=== PATIENT | male | born 1945 | race Caucasian/White ===

== ENCOUNTER 2016-10-22 17:30 | Emergency (ER) | payer MEDICARE, OTHER ==
[2016-10-22 17:35] VITALS: BP 143/86
[2016-10-22] MEDS ORDERED: Albuterol 2.5 MG/3 ML NEB.SOL* (0.083%) INH ONE (18:06)
[2016-10-22] MEDS ORDERED: Albuterol 2.5 MG/3 ML NEB.SOL* (0.083%) ONE (18:07)
--- NOTE | 2016-10-22 18:12 | UC ---
Respiratory Complaint HPI - HPI Summary HPI Summary: Nasal congestion and ST started about a week ago, in the last couple days increasing non-productive cough with wheezing. Also having painful respirations , cannot lay down on back. Denies fever. - History of Current Complaint Chief Complaint: UCRespiratory Stated Complaint: CONGESTION Time Seen by Provider: 10/22/16 17:43 Hx Obtained From: Patient Onset/Duration: Gradual Onset, Lasting Days Timing: Constant Severity Initially: Mild Severity Currently: Moderate Character: Cough: Nonproductive Aggravating Factors: Exertion, Deep Breaths, Recumbent Position Alleviating Factors: Upright Position Associated Signs And Symptoms: Positive: Wheezing, URI, Nasal Congestion. Negative: Fever, Chills, Calf Pain, Calf Swelling - Allergies/Home Medications Allergies/Adverse Reactions: Allergies Allergy/AdvReac Type Severity Reaction Status Date / Time Penicillins Allergy Intermediate Hives Verified 10/22/16 17:34 Home Medications: Home Medications Oxymetazoline HCl [Afrin Nasal [place]] 0.05 % NA PRN 10/22/16 [History] PMH/Surg Hx/FS Hx/Imm Hx Cardiovascular History Of: Reports: Hypertension - ON MED Respiratory History Of: Reports: Asthma - CHILDHOOD AND EARLY ADULT-NOT CURRENTLY - Surgical History Surgical History: Yes Surgery Procedure, Year, and Place: COLONOSCOPY--2013, HERNIA REPAIR 04/2016 - Family History Known Family History: Positive: Respiratory Disease - asthma - Social History Occupation: Retired Alcohol Use: Occasionally Alcohol Amount: 5-6 BEERS A WEEK Substance Use Type: None Smoking Status (MU): Never Smoked Tobacco Review of Systems Constitutional: Negative Skin: Negative Eyes: Negative ENT: Sore Throat, Nasal Discharge Respiratory: Cough Cardiovascular: Negative Gastrointestinal: Negative Genitourinary: Negative Motor: Negative Neurovascular: Negative Musculoskeletal: Negative Neurological: Negative Psychological: Negative All Other Systems Reviewed And Are Negative: Yes Physical Exam Triage Information Reviewed: Yes Vital Signs: Initial Vital Signs Temp 96.5 F 10/22/16 17:31 Pulse 74 10/22/16 17:31 Resp 16 10/22/16 17:31 BP 143/86 10/22/16 17:31 Pulse Ox 99 10/22/16 17:31 UC Diagnostic Evaluation - Laboratory O2 Sat by Pulse Oximetry: 99 Re-Evaluation - Re-Evaluation First Eval Re-Evaluation Time: 18:20 Change: Improved - increased air movement bilat after neb treatment Respiratory Course/Dx - Differential Dx/Diagnosis Provider Diagnoses: URI, likely viral. bronchospasm Discharge - Discharge Plan Condition: Stable Disposition: HOME Prescriptions: Albuterol HFA INHALER* [Ventolin HFA Inhaler*] 1 - 2 puff INH Q4H PRN #1 mdi PRN Reason: wheeze, cough Benzonatate CAP* [Tessalon CAP*] 100 mg PO TID PRN #30 cap PRN Reason: Cough Guaifenesin-Codeine [Guaiatussin AC] 5 - 10 ml PO Q6H #120 ml MDD 40mL Patient Education Materials: Upper Respiratory Infection (ED), Bronchospasm (ED ) Referrals: Vidal Conde MD [Primary Care Provider] - If Needed Additional Instructions: Call or return if you develop increasing fever, shortness of breath, chest pain , bloody sputum, or otherwise worsen. If you have not improved at all after several days, contact your primary care physician or return here.
== END 2016-10-22 18:30 | disposition home or self-care (01) ==
LOC: UCEAST 17:30
DX: J06.9 Acute upper respiratory infection, unspecified (principal); J98.01 Acute bronchospasm; Z88.0 Allergy status to penicillin
CPT/HCPCS: 99212; G0463

== ENCOUNTER 2018-02-01 17:37 | Observation (INO) | payer MEDICARE, OTHER ==
[2018-02-01] MEDS ORDERED: Al Hydrox/Mg Hydrox/Simet LIQ* 30 ML UDC PO ONE (21:07)
--- NOTE | 2018-02-01 21:16 | ED ---
Abdominal Pain/Male - HPI Summary HPI Summary: Complains of epigastric burning, has burning in sternum, burning in throat starting today. States epigastric discomfort over the past few days with decreased eating, but burning started today. Patient took antacid at 1400 with no relief. No history of epigastric or sternal burning, Occasional history of epigastric discomfort usually resolve with Maalox. Admits to increasing stress in the past 2 weeks. Denies cardiac history. Denies fever, cough, sore throat, SOB, N/V/D, change in urine. Medical history is HTN, HDL, prostate CA.. Abdominal/pelvic surgical history is hernia repair. - History of Current Complaint Hx Obtained From: Patient Onset/Duration: Gradual Onset Timing: Intermittent Severity Initially: Moderate Severity Currently: Moderate Pain Intensity: 4 Pain Scale Used: 0-10 Numeric Location: Epigastric Radiates: Yes Radiates to: Chest Character: Burning Aggravating Factor(s): Nothing Alleviating Factor(s): Nothing Associated Signs And Symptoms: Positive: Decreased Appetite - Risk Factors Testicular Torsion: Negative Cardiac Risk Factors: Hypertension <Rigo Kumari - Last Filed: 02/02/18 03:19> <Sudhir Newton - Last Filed: 02/02/18 04:07> - History of Current Complaint Chief Complaint: EDGeneral Stated Complaint: ABD PAIN Time Seen by Provider: 02/01/18 20:33 - Allergies/Home Medications Allergies/Adverse Reactions: Allergies Allergy/AdvReac Type Severity Reaction Status Date / Time Penicillins Allergy Hives Verified 02/02/18 02:34 Home Medications: Home Medications Enalapril TAB* [Vasotec TAB*] 5 mg PO QAM 02/01/18 [History Confirmed 02/01/18] Multivitamins/Minerals TAB* [Theragran/minerals TAB*] 1 tab PO DAILY 02/01/18 [ History Confirmed 02/01/18] Pravastatin (NF) [Pravachol (NF)] 20 mg PO QPM 02/01/18 [History Confirmed 02/01] PMH/Surg Hx/FS Hx/Imm Hx Cardiovascular History: Reports: Hx Hypertension - ON MED Respiratory History: Reports: Hx Asthma - CHILDHOOD AND EARLY ADULT-NOT CURRENTLY Sensory History: Reports: Hx Contacts or Glasses - GLASSES Denies: Hx Hearing Aid Opthamlomology History: Reports: Hx Contacts or Glasses - GLASSES - Surgical History Surgery Procedure, Year, and Place: COLONOSCOPY--2013, HERNIA REPAIR 04/2016 Hx Anesthesia Reactions: No - Immunization History Date of Tetanus Vaccine: utd Date of Influenza Vaccine: utd Infectious Disease History: No Infectious Disease History: Denies: Traveled Outside the [place] in Last 30 Days - Family History Known Family History: Positive: Respiratory Disease - asthma - Social History Alcohol Use: Daily Alcohol Amount: beer daily Substance Use Type: Reports: None Smoking Status (MU): Former Smoker <Rigo Kumari - Last Filed: 02/02/18 03:19> Review of Systems Constitutional: Negative Eyes: Negative ENT: Negative Cardiovascular: Negative Respiratory: Negative Positive: Abdominal Pain Genitourinary: Negative Musculoskeletal: Negative Skin: Negative Neurological: Negative Psychological: Normal All Other Systems Reviewed And Are Negative: Yes <Rigo Kumari - Last Filed: 02/02/18 03:19> Physical Exam Triage Information Reviewed: Yes Vital Signs On Initial Exam: Initial Vitals Temp Pulse Resp BP Pulse Ox 96.9 F 68 16 141/84 98 02/01/18 17:52 02/01/18 17:52 02/01/18 17:52 02/01/18 17:52 02/01/18 17:52 Vital Signs Reviewed: Yes Appearance: Positive: Well-Appearing Skin: Positive: Warm Head/Face: Positive: Normal Head/Face Inspection Eyes: Positive: Normal Neck: Positive: Supple Respiratory/Lung Sounds: Positive: Clear to Auscultation Cardiovascular: Positive: Normal Abdomen Description: Positive: Other: - Epigastric tenderness to palpation. No tenderness in any other quadrant Musculoskeletal: Positive: Normal Neurological: Positive: Normal Psychiatric: Positive: Normal AVPU Assessment: Alert - [place] Coma Scale Best Eye Response: 4 - Spontaneous Best Motor Response: 6 - Obeys Commands Best Verbal Response: 5 - Oriented Coma Scale Total: 15 <Rigo Kumari - Last Filed: 02/02/18 03:19> Vital Signs On Initial Exam: Initial Vitals Temp Pulse Resp BP Pulse Ox 96.9 F 68 16 141/84 98 02/01/18 17:52 02/01/18 17:52 02/01/18 17:52 02/01/18 17:52 02/01/18 17:52 <Sudhir Newton - Last Filed: 02/02/18 04:07> Diagnostics - Vital Signs Vital Signs Temp Pulse Resp BP Pulse Ox 02/01/18 19:55 98.0 F 81 18 141/81 98 02/01/18 17:52 96.9 F 68 16 141/84 98 - Laboratory Result Diagrams: 02/01/18 21:17 02/01/18 21:17 Lab Statement: Any lab studies that have been ordered have been reviewed, and results considered in the medical decision making process. - Radiology cxr Xray Interpretation: No Acute Changes Radiology Interpretation Completed By: Radiologist - CT ab/pel CT Interpretation: Positive (See Comments) - duodenal volvulus CT Interpretation Completed By: Radiologist - EKG 1 Cardiac Rate: NL EKG Rhythm: Sinus Rhythm ST Segment: Normal Ectopy: None <Rigo Kumari - Last Filed: 02/02/18 03:19> - Vital Signs Vital Signs Temp Pulse Resp BP Pulse Ox 02/02/18 00:00 84 15 96 02/01/18 23:32 93 14 160/103 96 02/01/18 23:04 77 15 95 02/01/18 22:36 66 21 94 02/01/18 22:32 63 12 131/80 95 02/01/18 22:09 70 8 96 02/01/18 21:32 70 13 143/86 94 02/01/18 21:02 66 12 127/110 95 02/01/18 21:00 67 17 94 02/01/18 20:32 71 16 127/79 95 02/01/18 20:26 74 20 95 02/01/18 19:55 98.0 F 81 18 141/81 98 02/01/18 17:52 96.9 F 68 16 141/84 98 - Laboratory Lab Results: Lab Results 02/01/18 02/01/18 02/01/18 Range/Units 21:17 21:17 21:43 WBC 10.0 (3.5-10.8) 10^3/ul RBC 4.88 (4.0-5.4) 10^6/ul Hgb 15.5 (14.0-18.0) g/dl Hct 44 (42-52) % MCV 90 (80-94) fL MCH 32 H (27-31) pg MCHC 35 (31-36) g/dl RDW 14 (10.5-15) % Plt Count 279 (150-450) 10^3/ul MPV 7.0 L (7.4-10.4) um3 Neut % (Auto) 74.9 (38-83) % Lymph % (Auto) 15.8 L (25-47) % [place] % (Auto) 8.3 H (0-7) % Eos % (Auto) 0.6 (0-6) % Baso % (Auto) 0.4 (0-2) % Absolute Neuts (auto) 7.5 (1.5-7.7) 10^3/ul Absolute Lymphs (auto) 1.6 (1.0-4.8) 10^3/ul Absolute Monos (auto) 0.8 (0-0.8) 10^3/ul Absolute Eos (auto) 0.1 (0-0.6) 10^3/ul Absolute Basos (auto) 0 (0-0.2) 10^3/ul Absolute Nucleated RBC 0 10^3/ul Nucleated RBC % 0 Sodium 139 (139-145) mmol/L Potassium 4.4 (3.5-5.0) mmol/L Chloride 101 (101-111) mmol/L Carbon Dioxide 30 (22-32) mmol/L Anion Gap 8 (2-11) mmol/L BUN 17 (6-24) mg/dL Creatinine 1.13 (0.67-1.17) mg/dL Est GFR ( Amer) 81.8 (>60) Est GFR (Non-Af Amer) 63.6 (>60) BUN/Creatinine Ratio 15.0 (8-20) Glucose 115 H (70-100) mg/dL Lactic Acid (0.5-2.0) mmol/L Calcium 9.6 (8.6-10.3) mg/dL Total Bilirubin 0.60 (0.2-1.0) mg/dL AST 21 (13-39) U/L ALT 18 (7-52) U/L Alkaline Phosphatase 66 (34-104) U/L Troponin I 0.01 (<0.04) ng/mL Total Protein 6.8 (6.4-8.9) g/dL Albumin 4.1 (3.2-5.2) g/dL Globulin 2.7 (2-4) g/dL Albumin/Globulin Ratio 1.5 (1-3) Lipase 27 (11.0-82.0) U/L Urine Color Yellow Urine Appearance Clear Urine pH 7.0 (5-9) Ur Specific [place] 1.009 L (1.010-1.030) Urine Protein Negative (Negative) Urine Ketones Negative (Negative) Urine Blood Negative (Negative) Urine Nitrate Negative (Negative) Urine Bilirubin Negative (Negative) Urine Urobilinogen Negative (Negative) Ur Leukocyte Esterase Negative (Negative) Urine Glucose Negative (Negative) 02/01/18 Range/Units 23:25 WBC (3.5-10.8) 10^3/ul RBC (4.0-5.4) 10^6/ul Hgb (14.0-18.0) g/dl Hct (42-52) % MCV (80-94) fL MCH (27-31) pg MCHC (31-36) g/dl RDW (10.5-15) % Plt Count (150-450) 10^3/ul MPV (7.4-10.4) um3 Neut % (Auto) (38-83) % Lymph % (Auto) (25-47) % [place] % (Auto) (0-7) % Eos % (Auto) (0-6) % Baso % (Auto) (0-2) % Absolute Neuts (auto) (1.5-7.7) 10^3/ul Absolute Lymphs (auto) (1.0-4.8) 10^3/ul Absolute Monos (auto) (0-0.8) 10^3/ul Absolute Eos (auto) (0-0.6) 10^3/ul Absolute Basos (auto) (0-0.2) 10^3/ul Absolute Nucleated RBC 10^3/ul Nucleated RBC % Sodium (139-145) mmol/L Potassium (3.5-5.0) mmol/L Chloride (101-111) mmol/L Carbon Dioxide (22-32) mmol/L Anion Gap (2-11) mmol/L BUN (6-24) mg/dL Creatinine (0.67-1.17) mg/dL Est GFR ( Amer) (>60) Est GFR (Non-Af Amer) (>60) BUN/Creatinine Ratio (8-20) Glucose (70-100) mg/dL Lactic Acid 1.4 (0.5-2.0) mmol/L Calcium (8.6-10.3) mg/dL Total Bilirubin (0.2-1.0) mg/dL AST (13-39) U/L ALT (7-52) U/L Alkaline Phosphatase (34-104) U/L Troponin I (<0.04) ng/mL Total Protein (6.4-8.9) g/dL Albumin (3.2-5.2) g/dL Globulin (2-4) g/dL Albumin/Globulin Ratio (1-3) Lipase (11.0-82.0) U/L Urine Color Urine Appearance Urine pH (5-9) Ur Specific [place] (1.010-1.030) Urine Protein (Negative) Urine Ketones (Negative) Urine Blood (Negative) Urine Nitrate (Negative) Urine Bilirubin (Negative) Urine Urobilinogen (Negative) Ur Leukocyte Esterase (Negative) Urine Glucose (Negative) Result Diagrams: 02/01/18 21:17 02/01/18 21:17 Lab Statement: Any lab studies that have been ordered have been reviewed, and results considered in the medical decision making process. <Sudhir Newton - Last Filed: 02/02/18 04:07> Re-Evaluation - Re-Evaluation 1 Re-Evaluation Time: 23:03 Change: Improved Comment: pt pain free after gi cocktail <Rigo Kumari - Last Filed: 02/02/18 03:19> Abdominal Pain Fem Course/Dx - Provider Notifications Discussed Care Of Patient With: Darion (surgery) Instructed by Provider To: Admit As Inpatient <Rigo Kumari - Last Filed: 02/02/18 03:19> - Course Course Of Treatment: I supervised the care of the physician bioinformatics assistant and I performed a history and physical on this patient. History: Epigastric, right upper quadrant pain with associated reflux type symptoms. Physical exam: Epigastric distention without tenderness to palpation at this juncture. Plan: CT scan was performed and I spoke to the radiologist who is concerned for an entity called duodenal volvulus. I placed an NG tube which drained over 500 cc of goode brown fluids. I consulted the general surgeon who was not familiar with this diagnosis either. She agreed to come and evaluate the patient at the bedside. She agrees the CT scan does not appear normal and we've agreed that the patient should be observed for possible gastric outlet obstruction. Following GI cocktail and NG tube he compression the patient has no pain. <Sudhir Newton - Last Filed: 02/02/18 04:07> - Diagnoses Provider Diagnoses: Gastric outlet obstruction Discharge - Sign-Out/Discharge Documenting (check all that apply): Discharge/Admit/Transfer - Billing Disposition and Condition Condition: STABLE [place] [facility] [place]Rigo Kumari - Last Filed: 02/02/18 03:19> - Billing Disposition and Condition Condition: STABLE [place] [facility] [place] <Sudhir Newton - Last Filed: 02/02/18 04:07> - Discharge Plan Condition: Stable Disposition: ADMITTED TO [facility]
[2018-02-01 21:37] LABS: ABS Basophils 0 10^3/ul (0-0.2); ABS Eosinophils 0.1 10^3/ul (0-0.6); ABS Lymphocytes 1.6 10^3/ul (1.0-4.8); ABS Monocytes 0.8 10^3/ul (0-0.8); ABS Neutrophils 7.5 10^3/ul (1.5-7.7); ABS Nucleated RBC 0 10^3/ul; Eosinophil % 0.6 % (0-6); Hematocrit 44 % (42-52); Hemoglobin 15.5 g/dl (14.0-18.0); Lymphocyte % 15.8 % (25-47); Mean Corpuscular HGB Conc 35 g/dl (31-36); Mean Corpuscular Hemoglobin 32 pg (27-31); Mean Corpuscular Volume 90 fL (80-94); Nucleated Red Blood Cells % 0; Platelet Count 279 10^3/ul (150-450); Red Blood Count 4.88 10^6/ul (4.0-5.4); Red Cell Distribution Width 14 % (10.5-15)
[2018-02-01 21:48] LABS: EGFR Non-African American 63.6 (>60)
--- NOTE | 2018-02-01 21:50 | RAD ---
Indication: Epigastric pain. 2 views of the chest including dual energy PA views demonstrates no mediastinal shift. Heart is of normal size and configuration. Lung zepeda appear clear. IMPRESSION: No active cardiopulmonary disease is noted.
[2018-02-01] MEDS ORDERED: Iohexol 300* (CONTRAST) 10 ML SDV IV ONE (21:55)
[2018-02-01 21:57] LABS: Urine Appearance Clear; Urine Blood Negative (Negative); Urine Color Yellow; Urine Ketones Negative (Negative); Urine Protein Negative (Negative); Urine Specific Gravity 1.009 (1.010-1.030); Urine Urobilinogen Negative (Negative)
[2018-02-02] MEDS ORDERED: hydrALAZINE IV* 20 MG/ML VIAL IV PRN (00:02)
[2018-02-02] MEDS ORDERED: Ondansetron INJ* 2 MG/ML VIAL IV PRN (00:04)
[2018-02-02] MEDS ORDERED: Morphine VIAL* 4 MG/ML VIAL (1 ml vial) IV PRN (00:06)
[2018-02-02] MEDS ORDERED: NS 0.9% 1000 ML* 1,000 ML IV ONE (00:08)
--- NOTE | 2018-02-02 00:21 | HP ---
H&P (Free Text) History and Physical: Surgery Asked by Dr. Newton to evaluate a pt with reported "duodenal volvulus". Mr. Portillo is a 73 y.o. male who reports he came to the ER because he was having unrelenting "reflux". He began to have the sensation of fluid backing up into his esophagus ~2-3 days ago. Earlier today it seemed to become persistent. He also notes that he had no appetite in this time, though he denies nausea or vomiting. He denies fever, but had chills yesterday. He also says he has been belching a lot, but not passing flatus. He may have had a related episode in December when he had RUQ pain for a few days and almost went to the ER in [place] where he was at the time. PMHx: HTN, hypercholesterolemia, prostate CA. Meds: enalapril, pravastatin, MVI ALL: PCN SH: quit tob 40 years ago after <1ppd x 5-8 years; daily EtOH, neg IVDA FH: brother of heart problem PE; general: WDWN male in NAD Vital Signs 02/01/18 02/01/18 02/01/18 17:52 19:55 20:26 Temperature 96.9 F 98.0 F Pulse Rate 68 81 74 Respiratory 16 18 20 Rate Blood Pressure 141/84 141/81 (mmHg) O2 Sat by Pulse 98 98 95 Oximetry 02/01/18 02/01/18 02/01/18 20:32 21:00 21:02 Temperature Pulse Rate 71 67 66 Respiratory 16 17 12 Rate Blood Pressure 127/79 127/110 (mmHg) O2 Sat by Pulse 95 94 95 Oximetry 02/01/18 02/01/18 02/01/18 21:32 22:09 22:32 Temperature Pulse Rate 70 70 63 Respiratory 13 8 12 Rate Blood Pressure 143/86 131/80 (mmHg) O2 Sat by Pulse 94 96 95 Oximetry HEENT: anicteric sclerae, moist oral mucosa, neg. cervical adenopathy lungs: clear to ausc. heart: reg. abd: distended, diminished BS, non-tender except for slight tenderness in epigastrium ext: neg. cyanosis, edema Laboratory Results - last 24 hr 02/01/18 02/01/18 02/01/18 21:17 21:17 21:43 WBC 10.0 RBC 4.88 Hgb 15.5 Hct 44 MCV 90 MCH 32 H MCHC 35 RDW 14 Plt Count 279 MPV 7.0 L Neut % (Auto) 74.9 Lymph % (Auto) 15.8 L [place] % (Auto) 8.3 H Eos % (Auto) 0.6 Baso % (Auto) 0.4 Absolute Neuts (auto) 7.5 Absolute Lymphs (auto) 1.6 Absolute Monos (auto) 0.8 Absolute Eos (auto) 0.1 Absolute Basos (auto) 0 Absolute Nucleated RBC 0 Nucleated RBC % 0 Sodium 139 Potassium 4.4 Chloride 101 Carbon Dioxide 30 Anion Gap 8 BUN 17 Creatinine 1.13 Est GFR ( Amer) 81.8 Est GFR (Non-Af Amer) 63.6 BUN/Creatinine Ratio 15.0 Glucose 115 H Lactic Acid Calcium 9.6 Total Bilirubin 0.60 AST 21 ALT 18 Alkaline Phosphatase 66 Troponin I 0.01 Total Protein 6.8 Albumin 4.1 Globulin 2.7 Albumin/Globulin Ratio 1.5 Lipase 27 Urine Color Yellow Urine Appearance Clear Urine pH 7.0 Ur Specific [place] 1.009 L Urine Protein Negative Urine Ketones Negative Urine Blood Negative Urine Nitrate Negative Urine Bilirubin Negative Urine Urobilinogen Negative Ur Leukocyte Esterase Negative Urine Glucose Negative 02/01/18 23:25 WBC RBC Hgb Hct MCV MCH MCHC RDW Plt Count MPV Neut % (Auto) Lymph % (Auto) [place] % (Auto) Eos % (Auto) Baso % (Auto) Absolute Neuts (auto) Absolute Lymphs (auto) Absolute Monos (auto) Absolute Eos (auto) Absolute Basos (auto) Absolute Nucleated RBC Nucleated RBC % Sodium Potassium Chloride Carbon Dioxide Anion Gap BUN Creatinine Est GFR ( Amer) Est GFR (Non-Af Amer) BUN/Creatinine Ratio Glucose Lactic Acid 1.4 Calcium Total Bilirubin AST ALT Alkaline Phosphatase Troponin I Total Protein Albumin Globulin Albumin/Globulin Ratio Lipase Urine Color Urine Appearance Urine pH Ur Specific [place] Urine Protein Urine Ketones Urine Blood Urine Nitrate Urine Bilirubin Urine Urobilinogen Ur Leukocyte Esterase Urine Glucose CT scan read as duodenal volvulus, but seems like GOO with very distended stomach. A/P: GOO; will admit, hydrate, keep NPO, decompress stomach with NGT, check UGI in AM. CLFoster
[2018-02-02] MEDS: Pantoprazole IV* 40 MG IV SCH ×2 (02:53→08:53)
[2018-02-02] MEDS: D5W 1/2 NS KCl 20 Meq 1000 ML* 1,000 ML IV SCH ×3 (03:36→22:37)
--- NOTE | 2018-02-02 08:21 | RAD ---
INDICATION: Epigastric abdominal pain. COMPARISON: There are no prior studies available for comparison. TECHNIQUE: A CT scan of the abdomen and pelvis was performed with intravenous and oral contrast following intravenous injection of 108 ml of Omnipaque 300 nonionic contrast. Contiguous axial sections were obtained from the lung bases through the symphysis pubis. Images were reconstructed in the coronal and sagittal planes. FINDINGS: There is mild dependent bilateral lower lobe subsegmental atelectasis. No pleural effusion is present. The liver and spleen are normal in size. There is a small nodular area along the posterior aspect of the spleen suggestive of a small accessory spleen. There is a small 0.5 cm hypodense lesion in the lateral segment of the right hepatic lobe likely representing a small cyst although too small to characterize by CT. The gallbladder is distended with mild thickening of the painter. The pancreas appears to be within normal limits. The kidneys and adrenal glands are normal in size. No hydronephrosis is seen. No significant focal renal abnormality is seen. The prostate gland is moderately enlarged measuring 5.7 cm in transverse dimension. The aorta is normal in caliber and demonstrates homogeneous contrast opacification. No significant enlarged retroperitoneal lymph nodes are seen. The stomach is markedly distended with an air-fluid level. The antrum and duodenum appear redundant and twisted suspicious for a volvulus. In addition the first portion of the jejunum turns into the right upper quadrant rather left upper quadrant consistent with malrotation. The gallbladder is diffusely thickened although most thickened adjacent to the twisted portion of the duodenum and antrum and may be inflamed secondary to the gastric process although may be a primary process with adhesions which may have predisposed to the volvulus. The appendix is within normal limits. There are scattered diverticuli within the colon which are moderate in degree in the descending and sigmoid colon. There is no evidence for diverticulitis or colitis. No free intraperitoneal air or fluid is seen. No significant focal osseous abnormality is seen. The results of this examination were discussed with Robert Gimenez. IMPRESSION: GASTRIC OUTLET OBSTRUCTION WHICH APPEARS TO BE REDUNDANCY AND TWISTING OF THE ANTRUM AND DUODENUM SUSPICIOUS FOR A VOLVULUS. THERE IS A MALROTATION OF THE SMALL BOWEL NOTED. THERE IS ALSO DISTENTION OF THE GALLBLADDER AND THICKENING OF THE WALL WHICH IS MOST THICKENED AND ADJACENT TO THE DUODENUM AND ANTRUM AND MAY BE INFLAMED SECONDARY TO THE GASTRIC PROCESS ALTHOUGH ALTERNATIVELY MAY BE A PRIMARY PROCESS WITH ADHESIONS AND MAY HAVE PREDISPOSED TO THE GASTRIC OUTLET OBSTRUCTION AND BOWEL TWISTING.
[2018-02-02] MEDS ORDERED: Phenol 1.4% Spray* 177 ML BTL MT PRN (08:22)
--- NOTE | 2018-02-02 09:01 | PN ---
Progress Note - Progress Note Date of Service: 02/02/18 Note: S: Denies pain. NG bothers his throat. No N/V. No flatus or BM. O: Vital Signs - 8 hr 02/02/18 02/02/18 02/02/18 02:00 02:08 02:39 Temperature 97.8 F 97.9 F Pulse Rate 73 73 Respiratory 11 18 16 Rate Blood Pressure 143/86 149/80 (mmHg) O2 Sat by Pulse 94 97 Oximetry 02/02/18 02/02/18 02/02/18 04:37 07:52 08:50 Temperature 99.9 F 98.3 F Pulse Rate 72 73 Respiratory 16 16 16 Rate Blood Pressure 128/66 137/76 (mmHg) O2 Sat by Pulse 94 94 Oximetry Intake and Output Last 24 Hours 01/31/18 02/01/18 02/02/18 02/03/18 06:59 06:59 06:59 06:59 Intake Total 1009 Output Total 350 225 Balance 659 -225 Weight 198 lb Intake: IV Fluids 1009 NS (0.9%) 999 Output: Urine 350 225 NG output not recorded, but per the pt, there was one trap filled (~ 1 L), then the current trap was attached just after midnight and remains empty. Gen: appears comfortable; NG in place Heart: reg Lungs: clear Abd: nondistended; BS quiet; soft; nontender to palp; no RUQ tenderness or Piedra's sign A: gastric outlet obstruction; ? duodenal volvulus (scan reviewed w/ Dr. Bañuelos, who felt there was indeed some redundancy of the duodenum and therefore possibly a volvulus; also he noted distension of the GB w/ wall thickening) P: spoke w/ Dr. Orlando; will order GB US; also UGI today; throat spray for NG irritation
--- NOTE | 2018-02-02 10:19 | RAD ---
HISTORY: Cholecystitis COMPARISONS: CT dated February 01, 2018 TECHNIQUE: Multiple transverse and longitudinal ultrasound images were obtained of the right upper quadrant of the abdomen using grayscale and color Doppler imaging. FINDINGS: LIVER: The liver is diffusely echogenic and coarse in echotexture, with decreased acoustic transmission. The liver is otherwise normal in shape, size, and contour. There is normal hepatopedal flow of the portal vein on Doppler imaging. BILIARY TREE: There is no intrahepatic or extrahepatic biliary dilatation. The common duct measures 0.4 cm. GALLBLADDER: Multiple gallstones are noted. There is the lateral thickening up to 0.4 cm. There is a small amount of pericholecystic fluid. There is no sonographic Piedra sign. PANCREAS: The head of the pancreas is unremarkable. The tail of the pancreas is not well visualized secondary to overlying bowel gas. RIGHT KIDNEY: The right kidney is normal in shape, size, contour, and echogenicity. There is no hydronephrosis or nephrolithiasis. The right kidney measures 10.7 x 4.5 x 5 cm. AORTA AND IVC: The aorta and IVC are unremarkable. FLUID: There are no pleural effusions. There is no free fluid within the hepatorenal recess. OTHER FINDINGS: None. IMPRESSION: GALLSTONES WITH GALLBLADDER WALL THICKENING AND PERICHOLECYSTIC FLUID, WITHOUT SONOGRAPHIC PIEDRA SIGN. THE SONOGRAPHIC FEATURES ARE SUGGESTIVE OF, BUT INDETERMINATE FOR, ACUTE CHOLECYSTITIS.
--- NOTE | 2018-02-02 12:55 | RAD ---
INDICATION: Evaluate gastric outlet obstruction. COMPARISON: February 01, 2018 CT. TECHNIQUE: 0.6 minutes fluoroscopy. The patient swallowed a small volume of thin barium in standing position. Multiple spot images were obtained in standing as well as supine and RIGHT lateral decubitus position. FINDINGS: Ingested barium slowly passed through the stomach to the duodenum intermixing with fibrous appearing material in the distended stomach suspicious for a bezoar given the clinical context. Presence of the material within the stomach and distal esophagus limits assessment of the mucosa. IMPRESSION: Limited upper gastrointestinal series with suggestion of retained material within the stomach likely accounting for high-grade partial gastric outlet obstruction concerning for potential bezoar. Results discussed with KP Gimenez 02/02/2018 12:50 PM EDT CPT II Codes: G9500
[2018-02-02] MEDS: Ciprofloxacin 400MG IVPREMIX(* 400 MG/200 ML BAG IVPB SCH (13:39)
[2018-02-02] MEDS: metroNIDAZOLE IV 500 MG/100ML* 500 MG/100 ML BAG IVPB SCH ×2 (15:45→21:31)
[2018-02-03] MEDS: Ciprofloxacin 400MG IVPREMIX(* 400 MG/200 ML BAG IVPB SCH ×2 (00:50→13:03)
[2018-02-03] MEDS: metroNIDAZOLE IV 500 MG/100ML* 500 MG/100 ML BAG IVPB SCH ×3 (05:57→22:35)
[2018-02-03] MEDS: D5W 1/2 NS KCl 20 Meq 1000 ML* 1,000 ML IV SCH ×2 (09:06→22:38)
[2018-02-03] MEDS: Pantoprazole IV* 40 MG IV SCH (09:06)
[2018-02-03] MEDS ORDERED: Midazolam* 1 MG/ML 5 ML VIAL (5 MG) ONE (16:06)
[2018-02-03] MEDS ORDERED: fentaNYL* 50 MCG/ML 2 ML VIAL (100 MCG VIAL) ONE (16:06)
[2018-02-03] MEDS ORDERED: Midazolam* 1 MG/ML 10 ML VIAL (10 MG) ONE (16:06)
[2018-02-04] MEDS: Ciprofloxacin 400MG IVPREMIX(* 400 MG/200 ML BAG IVPB SCH (01:28)
--- NOTE | 2018-02-04 02:02 | PRO ---
DATE: 02/03/18 - ROOM #348 REFERRING PHYSICIAN: Vidal Conde; Pricila Orlando * PROCEDURE: Upper gastrointestinal endoscopy and CLOtest INDICATION: This 73-year-old man developed a sense of regurgitation four or five days ago. He was nauseated but there was no vomiting. He came to the emergency room and imaging has shown a dilated stomach. He has had a CT scan, gallbladder ultrasound and upper GI series showing a dilated stomach, a narrow passage through the duodenum with some barium reaching the distal duodenum, ligament of Treitz area and then the gallbladder ultrasound showed a slightly thickened wall and gallstones. He is not prone to taking aspirin or Advil or other NSAID's. His nurse today observes that he has not vomited and he is not passing any gas either. ENDOSCOPIST: Dr. Alfonso MEDICATIONS: Midazolam 10, fentanyl 125. FINDINGS: He is a generally healthy-appearing man, somewhat plethoric countenance and reddish nasal skin. EGD: Larynx - narrow, limited views. Esophagus - easily entered and mucosa is normal in the upper and mid esophagus and there is little bit of edema and ringlet scarring from about 37 to 40. There are few small erosions at the EG junction. Stomach - large amount of retention, which does not contain any blood. Fluid was aspirated easily and then the scope did clog. The clogging material with prolonged aspiration oftentimes would come through the scope but a biopsy forceps was used to clear the channel periodically. Sequential aspiration was estimated to be about 300 cc. Air exchanges were done in the stomach. The gastric mucosa in the lower half of the body and antrum was eventually well seen and normal without any erosions. In the antrum, there was an extrinsic compression probably 8 or 9 cm in diameter coming from a 6 to 9PM orientation. There was no erythema of mucosal abnormality. Probing with a closed biopsy forceps showed it to be soft and compressible in all orientations. Seemed quite symmetric. Duodenum - sliding around the antral compression, the pylorus appeared normal and was easily traversed. There were no inflammatory signs or scarring there. The duodenal bulb and second through fourth portions appeared normal. There was no retention in the duodenum. IMPRESSION: 1. Gastric outlet obstruction - He has gastric retention, not a bezoar and it has now been substantially decompressed though that will be temporary 2. Submucosal antral mass - to be further defined with review of the radiology and possibly additionally imaging. An unusual cyst or pancreatic pseudocyst is a possibility as he had an episode of severe abdominal pain that he coughed out at home in [place] about five to six weeks ago. [id number]/[facility] #: [id number] MTDD
[2018-02-04] MEDS: metroNIDAZOLE IV 500 MG/100ML* 500 MG/100 ML BAG IVPB SCH (06:06)
[2018-02-04 07:51] VITALS: BP 132/66
--- NOTE | 2018-02-04 09:45 | PN ---
Progress Note - Progress Note Date of Service: 02/04/18 Note: Surgery Mr. Portillo reports he is hungry, hears his stomach gurgling, has not passed flatus. Vital Signs 02/03/18 02/03/18 02/03/18 12:18 15:35 18:05 Temperature 97.6 F 97.8 F 97.4 F Pulse Rate 51 57 53 Respiratory 16 16 18 Rate Blood Pressure 123/75 151/69 131/76 (mmHg) O2 Sat by Pulse 98 100 99 Oximetry 02/03/18 02/03/18 02/03/18 20:00 20:19 23:41 Temperature 98.2 F 97.9 F Pulse Rate 63 60 Respiratory 18 20 16 Rate Blood Pressure 130/75 132/80 (mmHg) O2 Sat by Pulse 98 99 Oximetry 02/04/18 02/04/18 02/04/18 03:51 07:46 07:49 Temperature 98.1 F 97.4 F Pulse Rate 58 56 Respiratory 16 12 16 Rate Blood Pressure 123/71 132/66 (mmHg) O2 Sat by Pulse 97 95 Oximetry Abd: distended, non-tender. I reviewed the imaging and results of the endoscopy with Dr. Hall and Dr. Alfonso and then discussed at length with Mr. Portillo. 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 with known prostate cancer. As the duplication cyst is causing pressing symptomatology this should be dealt with first, but does not need emergent surgery. Will start a liquid/puree diet and if he tolerates, he can go home and f/u as outpt. I will try to arrange a general surgical follow up for him as soon as possible. The cholecystitis can be managed with antibiotics as outpt. and a cholecystectomy can be considered at the time of the surgery for stomach or at a later date. The prostate surgery can be deferred till later, though at the time I spoke to the urologist about delaying prostate surgery we didn't know about the duplication cyst. I will notify him. Keily
[2018-02-04] MEDS ORDERED: metroNIDAZOLE TAB* 250 MG PO SCH (10:00)
[2018-02-04] MEDS ORDERED: CIPROFLOXACIN 250 MG/5 ML PO SCH (10:00)
[2018-02-04] MEDS: Pantoprazole IV* 40 MG IV SCH (10:22)
--- NOTE | 2018-02-04 15:22 | CONS ---
GASTROENTEROLOGY CONSULT: DATE : 02/03/18 CONSULTING PHYSICIANS: Vidal Wellington REASON FOR CONSULTATION: Gastric outlet obstruction, in a man not known to have prior peptic ulcer disease. HISTORY OF PRESENT ILLNESS: A 73-year-old retired [employer], developed upper abdominal discomfort 4 or 5 days ago. He became progressively more uncomfortable with a sense of reflux and back up into his chest. He did not actually vomit or have any documented fever. He noticed that his flatus has diminished. He continued to have bowel movements. He denies a long-term history of acid peptic problems and has never been on acid blockade. He says Dr Conde has never had to evaluate any stomach complaints or prescribed anything for his stomach. He does have some antacid at home, but uses them rarely. He takes no medicines for headaches or arthritis. He went to [place] this year, arriving there on 12/08/17. A few days after arriving, he developed a right upper quadrant pain that was severe for about a day and half and without seeing anyone or having any evaluation, it faded away over 3 or 4 days. He got back to eating his normal diet, which is unrestricted. He has a couple of beers a day. PAST MEDICAL HISTORY: 1. Inguinal hernia repair, few years ago. 2. Prostate cancer - scheduled to have robotic surgery at [facility]. 3. Hypertension. 4. Hypercholesterolemia - on a statin. MEDICATIONS: Enalapril Pravastatin Multivitamins. ALLERGIES: PENICILLIN. SOCIAL HISTORY: He is retired and he is listed as although all conversation had been with his daughter present. He quit smoking 40 years ago. His modest alcohol intake is corroborated by no alcohol related entries in the medical record extending back over 25 to 30 years. REVIEW OF SYSTEMS: No history of syncope, seizures, DC, palpitations, hepatitis , jaundice, renal stones or hematuria. Dr. Avila is his local urologist. He did have a single episode of an ALT rising to 96 (52 upper limit) on a single determination in 2010. Hepatitis C antibody was negative. PHYSICAL EXAM: He is a chepe complected older man in no overt distress. He has no adenopathy. His skin is otherwise normal. Chest is clear and heart sounds are normal. The abdomen is moderately distended, firm, nontender without any overt mass. There are no hernias palpated. There are no collaterals. Rectal deferred. Extremities show no deformity or edema. Neurologic: Nonfocal. DIAGNOSTIC STUDIES/LAB DATA: Radiology reviewed - with radiologist. There is a fairly uniform fluid-filled mass compressing the antrum of the stomach. There is no solid component within the fluid. The wall is uniform in thickness. There is no stranding in the mesenteric fat. It seemed separate from the biliary structures and from the pancreas though comes close to the pancreas on images 31 and 32 axial and 45 to 48 coronal. The pancreas itself appears unremarkable without any stranding around it and the pancreatic duct is not dilated. There are no abnormal lymph nodes. Labs - CBC shows hemoglobin 15.5, hematocrit of 44, MCV 90, platelets 279. LFTs normal, alkaline phosphatase 66, bilirubin 0.6, lipase 27. IMPRESSION AND PLAN: This 73-year-old man presents with a picture of gastric outlet obstruction. He does not have a long-term history of peptic problems or any risk factors for it. It is quite striking that he has not vomited. Clearly, the next step is endoscopy to examine the mucosa of the antrum and the pylorus and proximal duodenum. If no mucosal lesion is seen, question will be whether endoscopic ultrasound would add anything to this or whether direct surgical exploration with unroofing or resection would be appropriate. The differential would seem to be some sort of congenital cyst related to the stomach or biliary tree, pancreatic pseudocyst (although the brief dullness in December would not appear to be sufficient to trigger that) or some sort of tumorous obstruction of a lymphatic structure though that is not evident on the CT images which appear fairly precise. [id number]/[facility] #: [id number] MTDD
--- NOTE | 2018-02-09 21:48 | DS ---
DISCHARGE SUMMARY: DATE OF ADMISSION: 02/02/18 DATE OF DISCHARGE: 02/04/18 ADMISSION DIAGNOSIS: Gastric outlet obstruction. DISCHARGE DIAGNOSIS: Gastric outlet obstruction. PROCEDURES DURING THIS HOSPITALIZATION: Included upper endoscopy done on . HOSPITAL COURSE: Mr. Portillo is a 73-year-old gentleman admitted with gastric outlet obstruction. Please see admission history and physical for details of findings at the time of admission. He underwent NG decompression and investigations to evaluate the cause of his obstruction given findings on CAT scan suggestive of cholecystitis and duodenal volvulus and bezoar. The ultimate findings were of a cholecystitis which was treated with antibiotics and a submucosal mass causing gastric outlet obstruction from the antrum of the stomach. At the time of this hospitalization, he had a very distended stomach which was successfully managed with decompression and after he underwent upper endoscopy which identified the submucosal mass in the antrum, it was decided that he was stable for discharge home on antibiotics to treat the cholecystitis and that we would find a surgeon who could manage his gastric outlet obstruction and let him know. He was to maintain himself on liquid diet in the meantime. He was discharged to home with instructions to follow up as an outpatient. [id number]/[facility] #: [id number] MTDD
== END 2018-02-04 12:10 | disposition home or self-care (01) ==
LOC: ED 17:37 → SSU 02-02 00:02
PROVIDERS: ADMIT Surgery; ATTEND Surgery
PROC: 0DJ08ZZ Inspection of Upper Intestinal Tract, Via Natural or Artificial Opening Endoscopic (ICD-10-PCS; principal; 2018-02-03)
DX: K31.1 Adult hypertrophic pyloric stenosis (principal); K31.9 Disease of stomach and duodenum, unspecified; I10 Essential (primary) hypertension; E78.00 Pure hypercholesterolemia, unspecified; C61 Malignant neoplasm of prostate; Z79.899 Other long term (current) drug therapy; Z87.891 Personal history of nicotine dependence; K80.80 Other cholelithiasis without obstruction
CPT/HCPCS: 36415; 71046; 74177; 74246; 76705; 80053; 81003; 83605; 83690; 84484; 85025; 87077; 93005; 99156; 99157; 99284; A9270-GY; G0378; J0744; J2250; J3010; J3490; Q9967

== ENCOUNTER 2018-10-02 17:45 | Emergency (ER) | payer MEDICARE, OTHER ==
[2018-10-02] MEDS ORDERED: Nitroglycerin TAB 0.4 MG* 0.4 MG TAB SL ONE (17:59)
[2018-10-02] MEDS ORDERED: Aspirin TAB* 325 MG PO ONE (17:59)
[2018-10-02] MEDS ORDERED: Acetaminophen TAB* 325 MG PO ONE (17:59)
[2018-10-02 18:14] LABS: ABS Basophils 0 10^3/ul (0-0.2); ABS Eosinophils 0 10^3/ul (0-0.6); ABS Lymphocytes 0.5 10^3/ul (1.0-4.8); ABS Monocytes 0.4 10^3/ul (0-0.8); ABS Neutrophils 9.8 10^3/ul (1.5-7.7); ABS Nucleated RBC 0 10^3/ul; Eosinophil % 0.1 %; Hematocrit 44 % (42-52); Hemoglobin 15.2 g/dl (14.0-18.0); Lymphocyte % 4.6 %; Mean Corpuscular HGB Conc 34 g/dl (31-36); Mean Corpuscular Hemoglobin 30 pg (27-31); Mean Corpuscular Volume 88 fL (80-94); Mean Platelet Volume 6.8 fL (7.4-10.4); Nucleated Red Blood Cells % 0; Platelet Count 272 10^3/ul (150-450); Red Blood Count 5.03 10^6/ul (4.00-5.40); Red Cell Distribution Width 14 % (10.5-15); White Blood Count 10.7 10^3/ul (3.5-10.8)
[2018-10-02] MEDS ORDERED: Aspirin 81 mg CHEW TAB* 81 MG TAB.CHEW ONE (18:15)
[2018-10-02] MEDS ORDERED: Aspirin 81 mg CHEW TAB* 81 MG TAB.CHEW PO ONE (18:18)
--- NOTE | 2018-10-02 18:24 | ED ---
HPI Chest Pain - HPI Summary HPI Summary: The patient is a 73 y/o M presenting to [facility] with a chief complaint of dull mid -sternal CP starting at 14:00 today. He was at rest during onset, and he thought that is may have just been flatulence because he has an intestinal cyst. The pain is currently 8/10 in severity. He additionally c/o nausea and vomiting starting at 17:00, as well as diaphoresis. He denies lightheadedness, dizziness, and SOB. He has hx of HTN, no diabetes. Cholecystectomy and prostatectomy. Former smoker. - History of Current Complaint Chief Complaint: EDChestPainROMI Time Seen by Provider: 10/02/18 17:53 Hx Obtained From: Patient Onset/Duration: Started Hours Ago - at 14:00, Still Present Time of Onset: 14:00 Timing: Lasting Hours Initial Severity: Moderate Current Severity: Moderate Pain Intensity: 4 Pain Scale Used: 0-10 Numeric Chest Pain Location: Mid Sternal Chest Pain Radiates: No Character: Dull/Aching Aggravating Factor(s): Nothing Alleviating Factor(s): Nothing Associated Signs and Symptoms: Positive: Nausea, Vomiting, Other: - diaphoresis. Negative: Dizziness, Shortness of Breath, Lightheadedness, Cough - Additional Pertinent History Primary Care Physician: LOUIS - Allergy/Home Medications Allergies/Adverse Reactions: Allergies Allergy/AdvReac Type Severity Reaction Status Date / Time Penicillins Allergy Hives Verified 10/02/18 17:55 PMH/Surg Hx/FS Hx/Imm Hx Endocrine/Hematology History: Denies: Hx Diabetes Cardiovascular History: Reports: Hx Hypertension - ON MED Respiratory History: Reports: Hx Asthma - CHILDHOOD AND EARLY ADULT-NOT CURRENTLY GI History: Reports: Hx Obstructive Bowel - current Sensory History: Reports: Hx Contacts or Glasses - GLASSES Denies: Hx Hearing Aid Opthamlomology History: Reports: Hx Contacts or Glasses - GLASSES - Cancer History Cancer Type, Location and Year: prostate - Surgical History Surgery Procedure, Year, and Place: COLONOSCOPY--2013, HERNIA REPAIR 04/2016 Hx Anesthesia Reactions: No - Immunization History Date of Tetanus Vaccine: utd Date of Influenza Vaccine: utd Infectious Disease History: No Infectious Disease History: Denies: Traveled Outside the [place] in Last 30 Days - Family History Known Family History: Positive: Respiratory Disease - asthma - Social History Alcohol Use: Daily Alcohol Amount: beer daily Hx Substance Use: No Substance Use Type: Reports: None Hx Tobacco Use: Yes Smoking Status (MU): Former Smoker Review of Systems Positive: Skin Diaphoresis Positive: Chest Pain - mid-sternal Negative: Shortness Of Breath Positive: Vomiting, Nausea Neurological: Other - NEGATIVE: lightheaded, dizzy All Other Systems Reviewed And Are Negative: Yes Physical Exam - Summary Physical Exam Summary: Appearance: Well-appearing, Well-nourished, lying in bed comfortably Skin: Warm, dry, no obvious rash Eyes: sclera anicteric, no conjunctival pallor ENT: mucous membranes moist, pharynx appears normal Neck: Supple, nontender Respiratory: Clear to auscultation, no signs of respiratory distress Cardiovascular: Normal S1, S2. No murmurs. Normal distal pulses in tibial and radial bilaterally. Abdomen: Soft, nontender, normal active bowel sounds present Musculoskeletal: Normal, Strength/ROM Intact Neurological: A&Ox3, awake and alert, mentation is normal, speech is fluent and appropriate Psychiatric: affect is normal, does not appear anxious or depressed Triage Information Reviewed: Yes Vital Signs On Initial Exam: Initial Vitals Temp Pulse Resp BP Pulse Ox 95.3 F 72 20 174/79 95 10/02/18 17:48 10/02/18 17:48 10/02/18 17:48 10/02/18 17:48 10/02/18 17:48 Vital Signs Reviewed: Yes Diagnostics - Vital Signs Vital Signs Temp Pulse Resp BP Pulse Ox 10/02/18 18:04 98 10/02/18 18:00 18 10/02/18 17:59 14 10/02/18 17:58 18 171/88 10/02/18 17:48 95.3 F 72 20 174/79 95 - Laboratory Lab Results: Lab Results 10/02/18 Range/Units 18:06 WBC 10.7 (3.5-10.8) 10^3/ul RBC 5.03 (4.00-5.40) 10^6/ul Hgb 15.2 (14.0-18.0) g/dl Hct 44 (42-52) % MCV 88 (80-94) fL MCH 30 (27-31) pg MCHC 34 (31-36) g/dl RDW 14 (10.5-15) % Plt Count 272 (150-450) 10^3/ul MPV 6.8 L (7.4-10.4) fL Neut % (Auto) 91.6 % Lymph % (Auto) 4.6 % [place] % (Auto) 3.5 % Eos % (Auto) 0.1 % Baso % (Auto) 0.2 % Absolute Neuts (auto) 9.8 H (1.5-7.7) 10^3/ul Absolute Lymphs (auto) 0.5 L (1.0-4.8) 10^3/ul Absolute Monos (auto) 0.4 (0-0.8) 10^3/ul Absolute Eos (auto) 0 (0-0.6) 10^3/ul Absolute Basos (auto) 0 (0-0.2) 10^3/ul Absolute Nucleated RBC 0 10^3/ul Nucleated RBC % 0 Result Diagrams: 10/02/18 18:06 10/02/18 18:06 Lab Statement: Any lab studies that have been ordered have been reviewed, and results considered in the medical decision making process. - Radiology CXR Radiology Interpretation Completed By: Radiologist Summary of Radiographic Findings: No acute disease. ED physician has reviewed this report. Abd XR Radiology Interpretation Completed By: Radiologist Summary of Radiographic Findings: Increased sludging with ducts in intestines. ED physician has reviewed this report. - EKG 17:56 Cardiac Rate: NL - 67 BPM EKG Rhythm: Sinus Rhythm Summary of EKG Findings: NSR at 67BPM, P waves, QRS complex, and T waves are within normal limits, T waves and intervals are normal, no ischemic changes. This is a normal EKG 19:22 Cardiac Rate: NL - 61 BPM EKG Rhythm: Sinus Rhythm Summary of EKG Findings: NSR at 67BPM, P waves, QRS complex, and T waves are within normal limits, T waves and intervals are normal, no ischemic changes. This is a normal EKG. No STEMI. Re-Evaluation - Re-Evaluation First Eval Re-Evaluation Time: 20:45 Change: Improved Comment: The patient is feeling better. His liver enzyme tests ar abnormal, so I spoke with him about abd XR. I will also attempt to flatten out the right abd gastric obstruction again. Second Eval Re-Evaluation Time: 21:30 Change: Unchanged Comment: We discussed abd XR results and admission to [facility]. Chest Pain Course/Dx - Course Course Of Treatment: The patient is a 73 y/o M presenting to [facility] with a chief complaint of dull mid-sternal CP starting at 14:00 today. He additionally c/o nausea and vomiting starting at 17:00, as well as diaphoresis. He denies lightheadedness, dizziness, and SOB. Physical exam is negative. In the ED course , the patient was given Tylenol, Aspirin, Morphine, and NTG. Blood work reveals elevated glucose, bilirubin, AST, AKT, and alkaline phosphatase increased; first and second troponin normal. First EKG is negative. Second EKG is negative. CXR is negative. Due to abnormal liver enzymes, abd XR is ordered. Abd XR reveals increased sludging with ducts in intestines. Patient is diagnosed with chest pain. I spoke with Dr. Segura at 21:35, who recommends that the patient should be admitted. Dr. Muñoz accepts the patient for admission at 21:45. He agrees with this plan and understands the need for admission. - Diagnoses Provider Diagnoses: Choledocholithiasis - Provider Notifications Discussed Care Of Patient With: Rigo Segura - surgery Time Discussed With Above Provider: 21:35 Instructed by Provider To: Other - I consulted with Dr. Segura concerning imaging results. He recommends admission. Dr. Muñoz, hospitalist, who accepts the patient for admission at 21:45. Discharge - Sign-Out/Discharge Documenting (check all that apply): Patient Departure - Patient will be admitted to [facility] for further care by Dr. Muñoz. - Discharge Plan Condition: Stable Disposition: HOME Referrals: Vidal Conde MD [Primary Care Provider] - 2 Days Additional Instructions: Return to the ED for any new or worsening symptoms. - Billing Disposition and Condition Condition: STABLE Disposition: Home - Attestation Statements Document Initiated by Carroll: Yes Documenting Scribe: Tootie Ham Provider For Whom Carroll is Documenting (Include Credential): Dr. Adal Murillo MD Scribe Attestation: Tootie Downs scribed for Dr. Adal Murillo MD on 10/06/18 at 0158. Scribe Documentation Reviewed: Yes Provider Attestation: The documentation as recorded by the Tootie miranda accurately reflects the service I personally performed and the decisions made by me, Dr. Adal Murillo MD Status of Scribe Document: Viewed
[2018-10-02 18:30] LABS: Albumin 4.2 g/dL (3.2-5.2); Albumin/Globulin Ratio 1.6 (1-3); BUN/Creatinine Ratio 14.2 (8-20); Calcium 9.7 mg/dL (8.6-10.3); EGFR Non-African American 68.5 (>60); Globulin 2.7 g/dL (2-4); Potassium 4.5 mmol/L (3.5-5.0); Total Bilirubin 2.2 mg/dL (0.2-1.0); Total Protein 6.9 g/dL (6.4-8.9)
[2018-10-02] MEDS ORDERED: Morphine VIAL* 4 MG/ML VIAL (1 ml vial) IV ONE (19:42)
[2018-10-02] MEDS ORDERED: Clopidogrel TAB* 300 MG PO ONE (21:25)
--- NOTE | 2018-10-02 23:11 | ED ---
Progress - Progress Note Progress Note: Patient was seen by Dr. Murillo. The plan was to admit patient to the hospitalist. When the hospitalist arrived, patient stated that he has a doctor at [facility] (Dr. Up) and wishes to be seen by him as he is already under Dr. Sanders care. We attempted to reach Dr. Up and Dr. Watts was covering at the time. The case was discussed with Dr. Watts, who was willing to accept the patient. Given the fact that the patient would like to go to [facility] for convenience, the patient would be paying for the ambulance transfer out of pocket. The patient states that he would like to be discharged and his daughter will drive him to [facility] so Dr. Watts can admit him. Patient is pain-free at this time, afebrile, and stable for transfer. We will be giving all of his records in this visit, including bloodwork, doctor notes, and imaging studies to [facility]. Imaging studies were pushed through the internet to [facility]. Patient will be discharged with a dx of choledocholithiasis to be driven [facility] by his daughter. The patient is agreeable to his plan. Re-Evaluation - Re-Evaluation First Eval Re-Evaluation Time: 20:45 Change: Improved Comment: The patient is feeling better. His liver enzyme tests ar abnormal, so I spoke with him about abd XR. I will also attempt to flatten out the right abd gastric obstruction again. Second Eval Re-Evaluation Time: 21:30 Change: Unchanged Comment: We discussed abd XR results and admission to [facility] [place]. Course/Dx - Course Course Of Treatment: The patient is a 73 y/o M presenting to [facility] with a chief complaint of dull mid-sternal CP starting at 14:00 today. He additionally c/o nausea and vomiting starting at 17:00, as well as diaphoresis. He denies lightheadedness, dizziness, and SOB. Physical exam is negative. In the ED course , the patient was given Tylenol, Aspirin, Morphine, and NTG. Blood work reveals elevated glucose, bilirubin, AST, AKT, and alkaline phosphatase increased; first and second troponin normal. First EKG is negative. Second EKG is negative. CXR is negative. Due to abnormal liver enzymes, abd XR is ordered. Abd XR reveals increased sludging with ducts in intestines. Patient is diagnosed with chest pain. I spoke with Dr. Segura at 21:35, who recommends that the patient should be admitted. Dr. Muñoz accepts the patient for admission at 21:45. He agrees with this plan and understands the need for admission. Patient was seen by Dr. Murillo. The plan was to admit patient to the hospitalist. When the hospitalist arrived, patient stated that he has a doctor at [facility] (Dr. Up) and wishes to be seen by him as he is already under Dr. Sanders care. We attempted to reach Dr. Up and Dr. Watts was covering at the time. The case was discussed with Dr. Watts, who was willing to accept the patient. Given the fact that the patient would like to go to [facility] for convenience, the patient would be paying for the ambulance transfer out of pocket. The patient states that he would like to be discharged and his daughter will drive him to [facility] so Dr. Watts can admit him. Patient is pain-free at this time, afebrile, and stable for transfer. We will be giving all of his records in this visit, including bloodwork, doctor notes, and imaging studies to [facility]. Imaging studies were pushed through the internet to [facility]. Patient will be discharged with a dx of choledocholithiasis to be driven [facility] by his daughter. The patient is agreeable to his plan. - Diagnoses Provider Diagnoses: Choledocholithiasis - Provider Notifications Discussed Care Of Patient With: Maria Elena Watts MD Time Discussed With Above Provider: 23:00 Instructed by Provider To: Transfer Reason For Transfer: Other: - convenience Discharge - Sign-Out/Discharge Documenting (check all that apply): Patient Departure - Discharge Plan Condition: Stable Disposition: HOME Referrals: Vidal Conde MD [Primary Care Provider] - 2 Days Additional Instructions: Return to the ED for any new or worsening symptoms. - Billing Disposition and Condition Condition: STABLE Disposition: Home - Attestation Statements Document Initiated by Carroll: Yes Documenting Candiiblexy: Duarte Olson Provider For Whom Carroll is Documenting (Include Credential): Juan Manuel Black MD Scribe Attestation: Duarte Downs scribed for Juan Manuel Black MD on 10/02/18 at 2320. Scribe Documentation Reviewed: Yes Provider Attestation: The documentation as recorded by the Duarte miranda accurately reflects the service I personally performed and the decisions made by me, Juan Manuel Black MD Status of Scribe Document: Viewed
[2018-10-02 23:33] VITALS: BP 168/89
== END 2018-10-02 23:32 | disposition home or self-care (01) ==
LOC: ED 17:45
DX: K80.50 Calculus of bile duct without cholangitis or cholecystitis without obstruction (principal); I10 Essential (primary) hypertension; Z85.46 Personal history of malignant neoplasm of prostate; Z87.891 Personal history of nicotine dependence
CPT/HCPCS: 36415; 71045; 74019; 76705; 80053; 83690; 84484; 85025; 93005; 96374; 99284; A9270-GY; J2270